=== PATIENT | male | born 1955 | race Caucasian/White ===

== ENCOUNTER 2017-06-10 17:14 | Inpatient (IN) | payer BC, MEDICARE ==
--- NOTE | 2017-06-10 17:43 | ED.PDOC ---
History of Present Illness - General Chief Complaint: Problem Stated Complaint: possible UTI Time Seen by Provider: 06/10/17 17:40 Source: patient, RN notes reviewed Exam Limitations: no limitations Additional Information: 61 YEAR OLD WHITE MALE HAD A PROSTATE BIOPSY BY DR ALLEN 2 DAYS AGO NOW HAS FEVER CHILLS DYSURIA WAS GIVEN PROPHYLACTIC ABX CIPRO AND ALSO RECD A ANTIBIOTIC SHOT - History of Present Illness Timing/Duration: changing over time Quality: moderate Onset Location: unknown Radiation: none Activites at Onset: none Prior abdominal problems: none Allergies/Adverse Reactions: Allergies NO KNOWN ALLERGY Allergy (Verified 06/10/17 17:20) Home Medications: Ambulatory Orders Ascorbic Acid [Vitamin C] 500 mg PO DAILY 06/10/17 Coenzyme Q10 (Ubidecarenone) [Co Q-10] 100 mg PO DAILY 06/10/17 Enalapril Maleate 10 mg PO DAILY 06/10/17 Esomeprazole Magnesium [Nexium] 40 mg PO DAILY 06/10/17 Review of Systems - Review of Systems Constitutional: States: chills, fever EENTM: States: no symptoms reported Respiratory: States: no symptoms reported Cardiology: States: no symptoms reported Gastrointestinal/Abdominal: States: no symptoms reported Genitourinary: States: see HPI Musculoskeletal: States: no symptoms reported Skin: States: no symptoms reported Endocrine: States: no symptoms reported Past Medical History (General) - Patient Medical History Hx Seizures: No Hx Stroke: No Hx Asthma: No Hx of COPD: No Hx Cardiac Disorders: No Hx Congestive Heart Failure: No Hx Hypertension: Yes Hx Thyroid Disease: No Hx Diabetes: No Hx Gastroesophageal Reflux: No Hx Renal Disease: No Hx MRSA: Yes - Arm 2007 MRSA Source:: Wound Family Medical History - Family History Mother Family History: Unknown Physical Exam - Physical Exam General Appearance: Comfortable Eyes, Ears, Nose, Throat Exam: PERRL/EOMI, normal ENT inspection, TMs normal Neck: non-tender, full range of motion, supple Cardiovascular/Respiratory: regular rate, rhythm, no M/R/G, normal peripheral pulses, no JVD, normal breath sounds Back Exam: normal inspection, no CVA tenderness, no vertebral tenderness Neurologic: bridal gown fitter II-XII nml as tested, alert, oriented x 3, abnormal cerebellar tests Departure - Departure Clinical Impression: Prostatitis Disposition: Admit Patient Condition: Fair Departure Forms: ED Discharge - Pt. Copy, Patient Portal Self Enrollment Referrals: BARBER LEY [Primary Care Provider] - 1-2 Weeks Home Medications: Ambulatory Orders Ascorbic Acid [Vitamin C] 500 mg PO DAILY 06/10/17 Coenzyme Q10 (Ubidecarenone) [Co Q-10] 100 mg PO DAILY 06/10/17 Enalapril Maleate 10 mg PO DAILY 06/10/17 Esomeprazole Magnesium [Nexium] 40 mg PO DAILY 06/10/17 Decision To Admit - Decistion To Admit Decision to Admit Reason: Medical Nature Decision to Admit Date: 06/10/17 Decision to Admit Time: 19:17
[2017-06-10] MEDS ORDERED: CEFEPIME 2 GM in SODIUM CHL 0.9% 50ML MIN-BAG+ 50 ML IVPB ONE (18:24)
[2017-06-10] MEDS ORDERED: SODIUM CHLORIDE 0.9% 1000ML 1,000 ML IVS ONE (18:26)
[2017-06-10] MEDS ORDERED: SODIUM CHL 0.9% 50ML MIN-BAG+ 50 ML IVPB ONE (18:37)
[2017-06-10] MEDS ORDERED: CEFEPIME 2 GM VIAL IVPB ONE (18:37)
--- NOTE | 2017-06-10 19:34 | HP ---
SUPERVISING PHYSICIAN: Dino Norris M.D. CHIEF COMPLAINT: Chills and fever. HISTORY OF PRESENT ILLNESS: This is a 61 year-old white male that has had fever and chills for 1-1/2 to 2 days. On 06/08/17, he had a prostate biopsy by Dr. Davalos and shortly after coming home on Tuesday he developed a fever and had chills with it as well as dysuria. He was initially given a prophylactic antibiotic of Cipro and received an antibiotic shot after his procedure. He called his doctor today and his urologist told him to come to the Emergency Room. In the Emergency Room his temperature was 99.5 with a heart rate of 97. His blood pressure was 112/76 with a respiratory rate of 20 and an O2 sat of 94%. Lab was completed and sodium was 137, potassium 3.7, chloride 107, carbon dioxide 19, BUN 20, creatinine 1.02, glucose 127 with lactic acid of 1.2. WBCs were 17,900, hemoglobin 15.7, hematocrit 46.4 with neutrophils of 84.5%. Urinalysis showed 100 urine protein, large amount of urine blood, positive urine nitrites, small amount of urine bilirubin, moderate leukocyte esterase. Urine RBCs were too numerous to count, urine WBCs were too numerous to count, urine bacteria was 3+. He was given fluids in the Emergency Room as well as started on Cefepime. Dr. Davalos's office was called. Dr. Gonzalez was the urologist natural resource economist and the E. R. doctor informed him of the patient's symptoms, and he agreed that he should be admitted to the hospital. PAST MEDICAL HISTORY: 1. Gastroesophageal reflux disease. 2. Hypertension. 3. Hyperlipidemia. PAST SURGICAL HISTORY: 1. Tonsillectomy as a child. 2. Prostate biopsy. OUTPATIENT MEDICATIONS: 1. Ascorbic acid. 2. Co-Enzyme Q10. 3. Nexium. 4. Enalapril. ALLERGIES: NO KNOWN DRUG ALLERGIES. FAMILY HISTORY: SOCIAL HISTORY: He lives in [place]. He is a patient of Dr. Carpio in [place]. He smokes approximately 1 pack of cigarettes daily and has since the age of 19. He denies any ETOH or illicit drug use. He lives in [place]. He is . He is retired. REVIEW OF SYSTEMS: GENERAL: Positive for fatigue, fever and chills. Negative for weight changes. HEENT: Negative for ear pain, vision changes, sinus symptoms or sore throat. RESPIRATORY: Positive for shortness of breath. Negative for wheezing or coughing. CARDIOVASCULAR: Negative for chest pain, palpitations or tachycardia. GASTROINTESTINAL: Negative for abdominal pain, nausea, vomiting, diarrhea or constipation. GENITOURINARY: As per History of Present Illness. EXTREMITIES: Negative for edema. SKIN: Negative for rashes or lesions. NEUROLOGIC: Negative for headaches, seizures or dizziness. PHYSICAL EXAMINATION: VITAL SIGNS: Temperature 98.3, pulse rate 68, blood pressure 114/73, respiratory rate 20, O2 sat 95% on room air. GENERAL: This is a 61 year-old male patient who is lying in his hospital bed. He is in mild distress as he has chills. HEENT: Normocephalic and atraumatic. Pupils are equal and reactive. Oropharynx is clear. Oral mucous membranes are slightly dry. NECK: Supple without mass. There is no discernible jugular venous distention. RESPIRATORY: Essentially clear to auscultation bilaterally. Slightly diminished at the bases. There is no wheezing or rhonchi. CARDIOVASCULAR: Regular rate and rhythm. GASTROINTESTINAL: Abdomen is soft, nondistended, non-tender. Bowel sounds are positive. EXTREMITIES: No cyanosis, clubbing or edema. NEUROLOGIC: He is awake, alert and oriented times three. LABORATORY: Labs and films are as per the History of Present Illness. ASSESSMENT: 1. Sepsis secondary to prostatitis with WBCs of 17,900 and heart rate of 97 [id number]. 2. Recent prostate biopsy due to enlarged prostate by Dr. Davalos, urologist on 06/08/17. 3. Hypertension. 4. Gastroesophageal reflux disease. 5. Hyperlipidemia. PLAN: We will admit the patient to the hospital. I will continue to give him fluids overnight. I have continued the Cefepime and will monitor cultures as they become available. I have also done a flu swab due to his elevated temperature and chills. I have ordered a PPI for ulcer prophylaxis. I will hold off on any anticoagulants for now due to his recent surgery and it may be beneficial to call Dr. Davalos in the morning to guide us on antibiotic therapy as well as beginning anticoagulation for DVT prophylaxis. I have also ordered pain medications as well as routine lab for in the morning. We will continue to monitor the patient closely and follow as needed. Dr. Norris is the collaborating physician available for consultation. [facility][id number] [facility]
[2017-06-10] MEDS ORDERED: SODIUM CHLORIDE 0.9% (FLUSH) 10 ML SYG IV PRN (20:37)
[2017-06-10] MEDS ORDERED: ALBUTEROL SULFATE 2.5 MG/3 ML VIAL NEB PRN (20:38)
[2017-06-10] MEDS ORDERED: HYDROcodone 5MG/APAP 325MG 1 EA TAB PO PRN (20:38)
[2017-06-10] MEDS ORDERED: ALPRAZolam 0.25 MG TAB PO ONE (20:41)
[2017-06-10] MEDS: PANTOPRAZOLE SODIUM IV 40 MG VIAL IV SCH (20:55)
[2017-06-10] MEDS: ACETAMINOPHEN 325 MG TAB PO PRN (20:58)
[2017-06-10] MEDS ORDERED: SODIUM CHLORIDE 0.9% (FLUSH) 10 ML SYG IV SCH (21:00)
[2017-06-10] MEDS ORDERED: IV SET AND CAP CHANGE INJ INJ SCH (21:00)
[2017-06-10] MEDS: SODIUM CHLORIDE 0.45% 1000ML 1,000 ML IVS PRN (21:03)
[2017-06-11] MEDS ORDERED: SODIUM CHL 0.9% 50ML MIN-BAG+ 50 ML IVPB ONE ×2 (05:13→17:11)
[2017-06-11] MEDS ORDERED: CEFEPIME 2 GM VIAL IVPB ONE ×2 (05:14→17:11)
[2017-06-11] MEDS: SODIUM CHLORIDE 0.45% 1000ML 1,000 ML IVS PRN (05:28)
[2017-06-11] MEDS: CEFEPIME 2 GM in SODIUM CHL 0.9% 50ML MIN-BAG+ 50 ML IVPB SCH ×2 (05:59→17:32)
[2017-06-11] MEDS ORDERED: ENALAPRIL MALEATE 5 MG TAB ONE (07:02)
[2017-06-11] MEDS ORDERED: ALBUTEROL SULFATE 2.5 MG/3 ML VIAL NEB SCH (08:00)
[2017-06-11] MEDS: ENALAPRIL MALEATE 5 MG TAB PO SCH (08:24)
[2017-06-11] MEDS ORDERED: SODIUM CHLORIDE 0.9% (FLUSH) 10 ML SYG IV ONE (09:29)
[2017-06-11] MEDS ORDERED: TOPIRAMATE 25 MG TAB ONE (13:06)
[2017-06-11] MEDS: TOPIRAMATE 25 MG TAB PO SCH ×2 (13:08→20:36)
--- NOTE | 2017-06-11 14:11 | PCM.CORE ---
Physician DVT/VTE - Nurse DVT Assessment & Total Each Risk Factor Represents 3 Points: Medical PT with Hx of AL, CHF, Severe infection/sepsis Each Risk Factor Represents 2 Points: Age 60-74 Each Risk Factor Represents 1 Point: Hx of smoking past year DVT Assessment Score: 6 - 5 or more Very High Risk Treatments: Early Ambulation *, Sequential Compression Device Pharmacological: Enoxaparin 40mg SQ Daily
[2017-06-11] MEDS: ACETAMINOPHEN 325 MG TAB PO PRN (14:15)
--- NOTE | 2017-06-11 14:38 | PN ---
DATE: 06/11/17 SUPERVISING PHYSICIAN: Dino Norris M.D. SUBJECTIVE: The patient said he feels a little bit better today. He says he has been able to urinate a little bit more without difficulty compared to prior to admission. He denies any abdominal pains, any nausea or vomiting or diarrhea. He did have some chills with mild tremors last night related to the underlying infection which had resolved with Benzodiazepines and further treatment. OBJECTIVE: VITAL SIGNS: He remains afebrile, temperature 98, max is 99.5, pulse 86, blood pressure 106/71, respirations 18, satting 94% on room air. I's and O' s show a positive balance of 2650 with 525 out, 2900 in. Weight is 71.7 kg. CHEST: Lungs are clear to auscultation. HEART: Regular rate and rhythm. ABDOMEN: Soft, non-tender. Positive bowel sounds. EXTREMITIES: No clubbing, cyanosis or edema. NEUROLOGIC: He is alert and oriented times three. LABORATORY: This morning, elevated white count at 20,200 with hemoglobin 14.3, hematocrit 43.1, platelet count shows a continued left shift with 2% bands. Chemistries show normal electrolytes, BUN is 23, creatinine 1.09, blood sugar 107. Liver functions are all within normal limits. MICROBIOLOGY: Blood cultures remain negative. Urine culture preliminary shows gram-negative rods. Influenza swab on admission showed negative for A and B. ASSESSMENT: 1. Sepsis without any evidence of bacteremia currently secondary to prostatitis with continued leukocytosis showing to be stable with initiation of treatment with Cefipime. 2. Recent prostate biopsy due to enlarged prostate performed by Dr. Davalos, urologist on 06/08/17. 3. Hypertension. 4. Gastroesophageal reflux disease. 5. Hyperlipidemia. PLAN: The patient will be saline locked today as he is taking adequate oral intake. He is urinating but not large amounts at any given time but he says it is getting a little bit easier. Will continue to monitor closely. He will remain on parenteral antibiotics to include Cefepime. Await final cultures that showed gram-negative rods. Will target antibiotic therapy according to those final results in the morning. He continues to be on DVT prophylaxis now with Lovenox coverage. Will anticipate another 24 to 48 hours possibly discharging on Tuesday after further evaluation of urine cultures and more aggressive treatment with IV antibiotics. I will touch base with Dr. Davalos in regards to treatment plan as well as outpatient discharge followup. Until then , continue to monitor and treat appropriately. #[id number] [facility]
[2017-06-11] MEDS: SODIUM CHLORIDE 0.9% (FLUSH) 10 ML SYG IV SCH (20:36)
[2017-06-11] MEDS: PANTOPRAZOLE SODIUM IV 40 MG VIAL IV SCH (20:36)
[2017-06-12] MEDS ORDERED: SODIUM CHL 0.9% 50ML MIN-BAG+ 50 ML IVPB ONE ×3 (04:06→20:28)
[2017-06-12] MEDS ORDERED: CEFEPIME 2 GM VIAL IVPB ONE ×3 (04:07→20:28)
[2017-06-12] MEDS: CEFEPIME 2 GM in SODIUM CHL 0.9% 50ML MIN-BAG+ 50 ML IVPB SCH ×2 (06:21→17:41)
[2017-06-12] MEDS: SODIUM CHLORIDE 0.9% (FLUSH) 10 ML SYG IV SCH ×2 (08:06→20:35)
[2017-06-12] MEDS: ENALAPRIL MALEATE 5 MG TAB PO SCH (08:06)
[2017-06-12] MEDS: ENOXAPARIN SODIUM 40 MG/0.4 ML SYG SUBCU SCH (08:09)
[2017-06-12] MEDS: TOPIRAMATE 25 MG TAB PO SCH ×2 (08:11→20:34)
[2017-06-12] MEDS: PANTOPRAZOLE SODIUM IV 40 MG VIAL IV SCH (20:34)
--- NOTE | 2017-06-12 20:55 | PN ---
DATE: 06/12/17 SUPERVISING PHYSICIAN: Elieser Shields M.D. SUBJECTIVE: The patient did run a fever yesterday around 2:00 with a T max of 101.0. She also had some dysuria and only had voided 250 cc in a 12 hour period , therefore a urinary catheter was required which did show a return of well over 750 cc of urine. He notes that he is feeling better than yesterday as well as feels relief after the Peraza catheter was placed which was able to be done so without any complications. He has had no nausea or vomiting or diarrhea. OBJECTIVE: VITAL SIGNS: T max 101.0, pulse 78, blood pressure 116/71, respirations 20, satting 95% on room air. I's and O's show a positive balance of 130 with 1770 in, 1640 out after Peraza catheter was placed. Initial Peraza catheter placement showed 750 cc with only 250 cc voided prior to catheterization. Weight 71.7 kg. CHEST: Lungs are clear to auscultation bilaterally. HEART: Regular rate and rhythm. ABDOMEN: Soft, non-tender. Positive bowel sounds. EXTREMITIES: No clubbing, cyanosis or edema. NEUROLOGIC : He is alert and oriented times three. LABORATORY: White count has gone down to 10,900, hemoglobin and hematocrit are stable at 14.2 and 42.6, platelet count 174,000. Differential continues to show a left shift that has improved. Chemistries show normal electrolytes with potassium 3.6, BUN 16, creatinine 0.91, calcium 8.7. Urinalysis on placement of Peraza showed moderate amount of blood with a trace leukocyte esterase, negative for nitrites. Microscopic revealed 10 to 20 RBCs with 5 to 10 WBCs, no epithelials and rare bacteria. MICROBIOLOGY: Final culture results of the urine showed a fairly resistant Escherichia coli that was resistant to fluoroquinolones, Bactrim, Ampicillin, but sensitive to Ceftriaxone, Cefepime and Meropenem as well as Macrobid. Please see that final result for full details. His blood cultures remain negative after 24 hours. RADIOLOGY: There are no additional radiographic studies. ASSESSMENT: 1. Sepsis without any evidence currently of bacteremia secondary to underlying prostatitis and urinary tract infection with leukocytosis showing improvement after initiation of parenteral antibiotics to include Cefipime. 2. Urinary retention secondary to underlying prostatitis requiring placement of Peraza catheter. 3. History of prostate biopsy due to elevated PSA levels with procedure being performed by Dr. Davalos, urologist, on 06/08/17. 4. Acute prostatitis urinary tract infection likely secondary to prostate biopsy with final culture results showing a fairly resistant Escherichia coli but sensitive to current parenteral antibiotic treatment with Cefepime. 5. Hypertension, stable. 6. Gastroesophageal reflux disease. 7. Hyperlipidemia. PLAN: The patient today will continue with Peraza catheter. Anticipate this will stay in after discharge as well given that he has a significant amount of urinary retention. A review of his final culture and sensitivity shows that it is Escherichia coli sensitive to Cefepime. Will continue with this and given that it is resistant to fluoroquinolones, will touch base with Dr. Davalos tomorrow to assist in further management of antibiotics at discharge in anticipation of possibly needing a shelter IV antibiotic therapy. The patient continues on DVT prophylaxis with Lovenox without any complications. Will continue to monitor blood cultures and treat fevers as needed with Tylenol. He will remain saline locked as he is taking adequate p.o. fluids. Will plan to repeat his laboratory studies in the morning and anticipate hopefully discharging tomorrow after further discussion of the patient's case with Dr. Davalos. Until then, will continue to monitor and treat appropriately. #[id number] [facility]
[2017-06-13] MEDS: CEFEPIME 2 GM in SODIUM CHL 0.9% 50ML MIN-BAG+ 50 ML IVPB SCH (05:34)
[2017-06-13] MEDS: ENOXAPARIN SODIUM 40 MG/0.4 ML SYG SUBCU SCH (08:10)
[2017-06-13] MEDS: SODIUM CHLORIDE 0.9% (FLUSH) 10 ML SYG IV SCH (08:10)
[2017-06-13] MEDS: TOPIRAMATE 25 MG TAB PO SCH (08:12)
[2017-06-13] MEDS: ENALAPRIL MALEATE 5 MG TAB PO SCH (08:12)
[2017-06-13] MEDS ORDERED: DOXYCYCLINE HYCLATE CAP 100 MG CAP PO SCH (09:00)
[2017-06-13] MEDS ORDERED: TAMSULOSIN 0.4 MG CAP PO SCH (09:00)
[2017-06-13 10:25] VITALS: BP 142/80; TEMP 97.6; O2SAT 97
--- NOTE | 2017-06-13 21:35 | DS ---
SUPERVISING PHYSICIAN: Elieser Shields M.D. DISCHARGE DIAGNOSIS: 1. Concerns for sepsis initially on admission with the patient showing a significant leukocytosis secondary to prostatitis with a highly resistant Escherichia coli without any evidence of bacteremia with the patient showing good response to treatment with parenteral antibiotics to include Cefipime and being transitioned to doxycycline. 2. Urinary retention secondary to underlying prostatitis requiring Peraza placement to be followed in the outpatient setting by Dr. Davalos. 3. History of previous prostate biopsy due to elevated PSA levels with procedure being performed by Dr. Davalos, urologist, on 06/08/17. 4. Acute prostatitis with urinary tract infection questionably secondary to prostate biopsy with final culture results again showing a fairly resistant Escherichia coli but sensitive to Cefipime and showing good response to treatment initially. 5. Hypertension, stable. 6. Gastroesophageal reflux disease. 7. Hyperlipidemia. REASON FOR HOSPITALIZATION: Alma Short is a 61 year-old male patient of Dr. Costa's and Dr. Davalos's. He had been having fever and chills for about a day and a half since the previous biopsy on 06/08/17, when he had a prostate biopsy by Dr. Davalos. He noted shortly after coming home he developed a fever and chills as well as some dysuria. He had been on antibiotics previously with Cipro. He called Dr. Davalos who informed him that he needed to go to the Emergency Room for further evaluation. In the Emergency Room, he was found to have a low-grade temperature of 99.5. White count was showing elevation at 17,900 and urinalysis showed a large amount of blood with positive urine nitrites, mild leukocyte esterase and too numerous to count WBCs with 3+ bacteria on microscopic exam. In the Emergency Room, he was given fluids and started on Cefipime. Dr. Davalos's office was informed of the findings and Dr. Gonzalez, who was conditioning yard supervisor for Urology at that time, requested the E. R. doctor admit the patient here at [facility] for ongoing treatment with antibiotics and to have close followup with Dr. Davalos. The patient was admitted in stable condition. LABORATORY STUDIES: CBC on admission showed a white count of 17,900. It did maximize out at 20,200 but prior to discharge and with treatment was down to 5, 700. Hemoglobin and history were stable, at discharge was 14.9 and 43.8, platelet count was at 204,000. Differential did show a left shift but had resolved prior to discharge. His chemistries on admission showed normal electrolytes initially with a low carbon dioxide of 19 but a normal anion gap. BUN was 20, creatinine 1.02. Lactic acid initially was 1.2. Liver functions all showed to be within normal limits. Prior to discharge his electrolytes continued to show a low carbon dioxide at 18 but normal anion gap at 11, BUN was down to 19, creatinine was at 0.76 and liver functions remained within normal limits. Urinalysis on admission prior to Peraza catheter placement showed a large amount of blood, 100 of protein with positive nitrites, small amount of bilirubin, leukocyte esterase with microscopic showing too numerous to count WBCs, RBCs and notable 3+ bacteria with moderate mucous. Second urinalysis after Peraza placement showed moderate amount of blood with trace leukocyte esterase. Microscopic revealed 10 to 20 RBCs, 5 to 10 WBCs, zero epithelials and rare bacteria. MICROBIOLOGY: Influenza swab by PCR was negative for both A and B. He had 2 sets of blood cultures that remained without any growth at 48 hours. His final urine culture showed Escherichia coli that was fairly resistant to antibiotics, but sensitive to Cefipime. It was also noted that it was resistant to Cipro and Levaquin. RADIOLOGY STUDIES: There were none completed on this admission. HOSPITAL COURSE: Mr. Barragan is a 61 year-old male patient who was admitted to the hospital through the E. R. at the request of Dr. Davalos and Dr. Gonzalez for concerns for a developing sepsis due to prostatitis. The patient was initiated on fluids and given antibiotics to include Cefipime. The patient showed good clinical response, however, on Tuesday prior to discharge the patient was having minimal output and having difficulty urinating, therefore a Peraza catheter was placed with a residual of 750. The patient continued to show good improvement with treatment. He normalized his white count and remained hemodynamically stable and was without a fever for over 24 hours prior to discharge. It was felt that the patient had clinically improved and after visiting with Dr. Davalos, he was in agreement that the patient could be discharged to continue with outpatient treatment plan. PLAN: Mr. Barragan was discharged on 06/13/17 with instructions to have followup with Dr. Davalos as instructed and scheduled as well as Dr. Costa, his primary care provider in at least 7 to 10 days, or sooner if needed. He is to see Dr. Costa on 06/24/17 at 10:00 AM in [place]. He is to continue with the Peraza catheter and was instructed on how to care for the Peraza catheter by nurses. He is to resume his home medications as instructed and start new medications as directed. He was encouraged to return to the hospital should he have any worsening of his symptoms, including increasing fever or pain or any notable change in his urine or difficulty with drainage of the urine bag. He is also scheduled to see Dr. Davalos on 06/20/17 at 2:00 PM in [place] and he is scheduled with Dr. Costa on 06/24/17 at 10:00. Diet at discharge was regular diet as tolerated. Activity is as tolerated. New medications at discharge included: 1. Doxycycline 100 mg twice daily for at least 30 days. 2. Flomax 0.4 mg for 30 days. All other medications prior to admission were continued as was prior to admission. Condition at discharge was stable and improved. #[id number] [facility]
== END 2017-06-13 10:39 | disposition home or self-care (01) | DRG 862 ==
LOC: ER 17:14 → OBSVTOIN 19:32 → MS 19:32
PROVIDERS: ADMIT Nurse Practitioner Acute Care; ATTEND Nurse Practitioner Family
DX: T81.4XXA Infection following a procedure, initial encounter (principal); A41.51 Sepsis due to Escherichia coli [E. coli]; N41.0 Acute prostatitis; Y83.8 Other surgical procedures as the cause of abnormal reaction of the patient, or of later complication, without mention of misadventure at the time of the procedure; I10 Essential (primary) hypertension; K21.9 Gastro-esophageal reflux disease without esophagitis; E78.5 Hyperlipidemia, unspecified; F17.210 Nicotine dependence, cigarettes, uncomplicated

== ENCOUNTER 2017-11-09 10:46 | Emergency (ER) | payer MEDICARE ==
[2017-11-09 11:00] VITALS: TEMP 97.9
[2017-11-09] MEDS ORDERED: KETOROLAC TROMETHAMINE INJ 30 MG/ML VIAL IM ONE (11:22)
[2017-11-09] MEDS ORDERED: GABAPENTIN 300 MG CAP PO ONE (11:22)
[2017-11-09] MEDS ORDERED: GABAPENTIN 100 MG CAP ONE (11:52)
[2017-11-09] MEDS ORDERED: GABAPENTIN 100 MG CAP PO ONE (11:55)
--- NOTE | 2017-11-09 12:22 | RAD ---
EXAM DESCRIPTION: Abdomen Series CLINICAL HISTORY: paraspinal pain adj T10-T12 COMPARISON: None. FINDINGS: AP supine and upright views of the abdomen show a nonspecific, nonobstructive bowel gas pattern with no evidence for free intraperitoneal air. Surgical clips from cholecystectomy are seen. No air-filled dilated loops of small bowel are seen. No significant air-fluid levels are identified. No obvious organomegaly is seen. No abnormal calcifications are seen in the expected location of the renal collecting systems. Single view of the chest shows cardiac silhouette and pulmonary vasculature to be within normal limits. Lungs are normally aerated and clear. Moderate tortuosity and calcifications of the thoracic aorta is seen. No obvious widening of the paraspinal line. Pelvis is incompletely visualized. IMPRESSION: Nonspecific abdominal series Electronically signed by: Dhaval Tatum MD 11/09/2017 12:21 PM CDT
--- NOTE | 2017-11-09 12:23 | RAD ---
EXAM DESCRIPTION: Thoracic Spine Lateral Only CLINICAL HISTORY: back pain COMPARISON: None. IMPRESSION: Single lateral view of the thoracic spine shows diffuse osteopenia the osseous structures. No obvious compression fracture deformity is seen. Mild disc space narrowing and anterior marginal endplate osteophytes in the lower thoracic spine suggest disc degenerative disease. Electronically signed by: Dhaval Tatum MD 11/09/2017 12:21 PM CDT
[2017-11-09] MEDS ORDERED: HYDROcodone 7.5MG/APAP 325MG 1 EA TAB PO ONE (12:49)
--- NOTE | 2017-11-09 12:53 | ED.PDOC ---
History of Present Illness - General Chief Complaint: Back Pain or Injury Stated Complaint: lumbar and flank pain Time Seen by Provider: 11/09/17 11:15 Source: patient Exam Limitations: no limitations - History of Present Illness Initial Comments: the patient is a 62-year-old male presenting to the emergency room secondary to a weeks worth of ongoing mid back pain. He has had no history of any trauma. He has had some mild chronic back pain in the past. He went to see his primary care doctor for 5 days ago and was placed on a muscle relaxer steroid and oral anti-inflammatory and Tylenol No. 3 that the pain has simply continued for an and he is having a little bit of sciatica down the left leg now. No weakness or sensory changes. Again no trauma. No falls. He is having difficulty with sleep due to the pain but also likely due to the steroid. On physical exam there is no visible deformity. No spinous process tenderness to palpation and no step-off. All pain is paraspinal and there is obvious palpable muscle spasm. He has muscle spasm extending adjacent to T10-T12 bilaterally. Timing/Duration: 1 week Severity: moderate Improving Factors: nothing Worsening Factors: movement Associated Symptoms: malaise Allergies/Adverse Reactions: Allergies NO KNOWN ALLERGY Allergy (Verified 06/10/17 17:20) Home Medications: Ambulatory Orders Ascorbic Acid [Vitamin C] 500 mg PO DAILY 06/10/17 Coenzyme Q10 (Ubidecarenone) [Co Q-10] 100 mg PO DAILY 06/10/17 Enalapril Maleate 10 mg PO DAILY 06/10/17 Esomeprazole Magnesium [Nexium] 40 mg PO DAILY 06/10/17 Topiramate 100 mg PO BID 06/11/17 Gabapentin 300 mg PO Q8HR PRN #20 cap 11/09/17 Review of Systems - Review of Systems Constitutional: States: no symptoms reported EENTM: States: no symptoms reported Respiratory: States: no symptoms reported Cardiology: States: no symptoms reported Gastrointestinal/Abdominal: States: no symptoms reported Genitourinary: States: no symptoms reported Musculoskeletal: States: see HPI Skin: States: no symptoms reported Neurological: States: see HPI Endocrine: States: no symptoms reported All other Systems: No Change from Baseline Past Medical History (General) - Patient Medical History Hx Seizures: No Hx Stroke: No Hx Asthma: No Hx of COPD: No Hx Cardiac Disorders: No Hx Congestive Heart Failure: No Hx Pacemaker: No Hx Hypertension: Yes Hx Thyroid Disease: No Hx Diabetes: No Hx Gastroesophageal Reflux: Yes Hx Renal Disease: No Hx MRSA: No MRSA Source:: Wound Surgical History: cholecystectomy, tonsillectomy - Social History Hx Alcohol Use: No Hx Substance Use: No Hx Physical Abuse: No Hx Emotional Abuse: No Family Medical History - Family History Mother Family History: Unknown Physical Exam - Physical Exam General Appearance: Alert, No apparent distress Eye Exam: bilateral normal Ears, Nose, Throat: hearing grossly normal, normal pharynx Neck: non-tender, full range of motion, supple Respiratory: lungs clear, normal breath sounds, no respiratory distress, no accessory muscle use Cardiovascular/Chest: normal peripheral pulses, no edema, other - regular rate Peripheral Pulses: radial,right: 2+, radial,left: 2+, dorsalis pedis,right: 2+, dorsalis pedis,left: 2+ Gastrointestinal/Abdominal: non tender, soft Rectal Exam: deferred Back Exam: no vertebral tenderness, CVA tenderness (R), CVA tenderness (L) Extremity: non-tender, normal inspection, no pedal edema, no calf tenderness, normal capillary refill 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 he does not have any tenderness to palpation or deformity over the spine itself. He does have paraspinal muscle spasms adjacent to T10 through T12 bilaterally. He is having a little bit of sciatica at this point after the pain is progressed over the last week. The patient is already taking a steroid, a muscle relaxer, and an anti-inflammatory , and a pain pill. I'm going to add some Neurontin on board primarily for the sciatica. I do think it would be beneficial for him to visit a chiropractor for a trial of treatment. If the patient is not improving over the next week then additional workup may be warranted. Urinalysis is clear. X-rays otherwise show no significant acute pathology. topical heat in the form of a heat pad or icy hot or Biofreeze may also prove beneficial. Stretching exercises may also help. 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 No evidence of any obstruction. No evidence of any obvious large kidney stones. No free air. No obvious abnormalities of the chest. Departure - Departure Clinical Impression: Mid-back pain, acute Sciatica Qualifiers: Laterality: left Qualified Code(s): M54.32 - Sciatica, left side Disposition: Discharge to Home or Self Care Condition: Fair Departure Forms: ED Discharge - Pt. Copy, Patient Portal Self Enrollment Instructions: DI for Back Strain or Sprain, DI for Back Pain With Sciatica Diet: regular diet Activity: increase activity as tolerated Referrals: BARBER LEY [Primary Care Provider] - 1-2 Weeks Prescriptions: Gabapentin 300 mg PO Q8HR PRN #20 cap PRN Reason: Pain -- Moderate Home Medications: Ambulatory Orders Ascorbic Acid [Vitamin C] 500 mg PO DAILY 06/10/17 Coenzyme Q10 (Ubidecarenone) [Co Q-10] 100 mg PO DAILY 06/10/17 Enalapril Maleate 10 mg PO DAILY 06/10/17 Esomeprazole Magnesium [Nexium] 40 mg PO DAILY 06/10/17 Topiramate 100 mg PO BID 06/11/17 Gabapentin 300 mg PO Q8HR PRN #20 cap 11/09/17 Additional Instructions: the patient is an 17-year-old male presenting secondary to an episode of heat exhaustion along with concurrent dehydration, gastritis giving nausea and vomiting and some hypokalemia. The patient is receiving a dose of oral potassium here. he is to have his potassium level rechecked in 2 weeks. He also received 2 L of IV fluids for the dehydration and for heat exhaustion. The patient will be placed on famotidine twice a day for the next 2 weeks as wellfor the gastritis. He'll also be written for some Zofran to take for as needed use to control any vomiting. He needs to avoid overheating particularly for the next 2 weeks, as he is more likely to complications from this if it recurs in that timeframe. ER warnings were given for any worsening. no significant evidence of any kidney or liver dysfunction or significant rhabdomyolysis. follow-up with primary care doctor early next week for clearance to resume full outdoor activity.
[2017-11-09 13:25] VITALS: BP 180/90; O2SAT 99
== END 2017-11-09 13:22 | disposition home or self-care (01) ==
LOC: ER 10:46
DX: M54.6 Pain in thoracic spine (principal); M54.32 Sciatica, left side; I10 Essential (primary) hypertension; K21.9 Gastro-esophageal reflux disease without esophagitis
CPT/HCPCS: 72020; 74019; 81001; J1885

== ENCOUNTER 2018-07-31 10:24 | Emergency (ER) | payer MEDICARE ==
[2018-07-31 10:38] VITALS: TEMP 97.3
--- NOTE | 2018-07-31 10:51 | ED.PDOC ---
History of Present Illness - General Chief Complaint: GI Problem Stated Complaint: HEMORROIDS/BLEEDING Time Seen by Provider: 07/31/18 10:36 Source: patient Exam Limitations: no limitations - History of Present Illness Initial Comments: Reg Barragan63 y/o male came to ER with dull pain perineal area for the last one week not any better even after using rectal suppositories as prescribed by Md.Denies fever ,chills or rectal bleeding. Timing/Duration: other - one week Severity: moderate Improving Factors: nothing Worsening Factors: other - sitting Associated Symptoms: denies symptoms Allergies/Adverse Reactions: Allergies NO KNOWN ALLERGY Allergy (Verified 07/31/18 10:38) Home Medications: Ambulatory Orders Ascorbic Acid [Vitamin C] 500 mg PO DAILY 06/10/17 Coenzyme Q10 (Ubidecarenone) [Co Q-10] 100 mg PO DAILY 06/10/17 Enalapril Maleate 10 mg PO DAILY 06/10/17 Esomeprazole Magnesium [Nexium] 40 mg PO DAILY 06/10/17 Topiramate 100 mg PO BID 06/11/17 Acetaminophen W/ Codeine [Tylenol W/ CODEINE #3] 1 ea PO Q4HR PRN #20 07/31/18 Atenolol [Tenormin] 25 mg PO BEDTIME 07/31/18 Ciprofloxacin [Cipro] 500 mg PO BID 10 Days #20 tab 07/31/18 Rosuvastatin Calcium [Crestor] 20 mg PO BEDTIME 07/31/18 Review of Systems - Review of Systems Constitutional: States: no symptoms reported EENTM: States: no symptoms reported Respiratory: States: no symptoms reported Skin: States: see HPI All other Systems: Reviewed and Negative Past Medical History (General) - Patient Medical History Hx Seizures: No Hx Stroke: No Hx Asthma: No Hx of COPD: No Hx Cardiac Disorders: No Hx Congestive Heart Failure: No Hx Pacemaker: No Hx Hypertension: Yes Hx Thyroid Disease: No Hx Diabetes: No Hx Gastroesophageal Reflux: Yes Hx Renal Disease: No Hx Cancer: No Hx Hepatitis C: No Hx MRSA: No MRSA Source:: Wound Surgical History: cholecystectomy, tonsillectomy, other - prostate biopsy,colonoscopy,vasectomy - Vaccination History Hx Tetanus, Diphtheria Vaccination: No Hx Influenza Vaccination: No Hx Pneumococcal Vaccination: No Immunizations Up to Date: No - Social History Hx Tobacco Use: Yes Hx Alcohol Use: No Hx Substance Use: No Hx Substance Use Treatment: No Hx Depression: No Hx Physical Abuse: No Hx Emotional Abuse: No Family Medical History - Family History Mother Family History: Unknown Hx Family Hypertension: Yes - mom Hx Family Cancer: Yes - brain-sisters Hx Family;Other: DAD-dyslipedemia Physical Exam - Physical Exam General Appearance: Alert, Comfortable, No apparent distress Eye Exam: bilateral normal Ears, Nose, Throat: hearing grossly normal, normal ENT inspection Neck: full range of motion, supple, normal inspection Respiratory: lungs clear, normal breath sounds, no respiratory distress Cardiovascular/Chest: normal peripheral pulses, regular rate, rhythm, no murmur Peripheral Pulses: radial,right: 2+, radial,left: 2+ Gastrointestinal/Abdominal: non tender, soft, no organomegaly, other - Genitali- normal male ,single testes Rectal Exam: tenderness - perineum, other - erythematous fluctuant area perineum;no induration noted rectal exam Back Exam: no CVA tenderness, no vertebral tenderness Extremity: no pedal edema, no calf tenderness Neurologic: alert, oriented x 3 Skin Exam: normal color, warm/dry Lymphatic: no adenopathy Progress - Progress Progress: 07/31/18 11:10 Vital Signs - 8 hr 07/31/18 10:33 Temperature 97.3 F L Pulse Rate [ 109 H MONITOR] Respiratory 18 Rate Blood Pressure 141/90 [LA] O2 Sat by Pulse 98 Oximetry Procedures - Incision and Drainage #1 Site: perineum Procedure and Prep: sterile drapes applied, sterile dressings applied, gauze wick placed, irrigated, wound culture collected, other - hibiclens Blade Size: 11 Procedure Comments: tolerated well;given Morphine sulfate 5 mg IV and. Compazine 5 mg IV prior to procedure Departure - Departure Clinical Impression: Perineal abscess Time of Disposition: 11:56 Disposition: Discharge to Home or Self Care Condition: Good Departure Forms: ED Discharge - Pt. Copy, Patient Portal Self Enrollment Instructions: Abscess Incision and Drainage (DC), Abscess Incision and Drainage Referrals: BARBER LEY [Primary Care Provider] - 1-2 Weeks Prescriptions: Acetaminophen W/ Codeine [Tylenol W/ CODEINE #3] 1 ea PO Q4HR PRN #20 PRN Reason: Pain Ciprofloxacin [Cipro] 500 mg PO BID 10 Days #20 tab Home Medications: Ambulatory Orders Ascorbic Acid [Vitamin C] 500 mg PO DAILY 06/10/17 Coenzyme Q10 (Ubidecarenone) [Co Q-10] 100 mg PO DAILY 06/10/17 Enalapril Maleate 10 mg PO DAILY 06/10/17 Esomeprazole Magnesium [Nexium] 40 mg PO DAILY 06/10/17 Topiramate 100 mg PO BID 06/11/17 Acetaminophen W/ Codeine [Tylenol W/ CODEINE #3] 1 ea PO Q4HR PRN #20 07/31/18 Atenolol [Tenormin] 25 mg PO BEDTIME 07/31/18 Ciprofloxacin [Cipro] 500 mg PO BID 10 Days #20 tab 07/31/18 Rosuvastatin Calcium [Crestor] 20 mg PO BEDTIME 07/31/18 Additional Instructions: Continue with all home medications p;Pull out packing 02 August 2018 AM;Clean area with hibiclens as provided once daily at bedtime after pulling out packing for 5 days;Return to ER as needed ;follow up with primary MD 07 August 2018 for recheck
[2018-07-31] MEDS ORDERED: CLINDAMYCIN IV 600MG 600 MG in PREMIX BAG 1 BAG IVPB ONE (10:52)
[2018-07-31] MEDS ORDERED: levoFLOXacin 500 MG TAB PO ONE (10:52)
[2018-07-31] MEDS ORDERED: CLINDAMYCIN IV 600MG 50 ML IVPB ONE (10:54)
[2018-07-31] MEDS ORDERED: CHLORHEXIDINE GLUCONATE 4 % 15 ML UD TOP ONE (11:15)
[2018-07-31] MEDS ORDERED: IODOFORM PACKING 1/2 INCH 1 EA BTTL TOP ONE (11:19)
[2018-07-31] MEDS ORDERED: PROCHLORPERAZINE INJ 10 MG/2 ML VIAL ONE (11:25)
[2018-07-31] MEDS ORDERED: MORPHINE SULFATE INJ 10 MG/ML VIAL ONE (11:26)
[2018-07-31] MEDS ORDERED: MORPHINE SULFATE INJ 10 MG/ML VIAL IV ONE (11:47)
[2018-07-31] MEDS ORDERED: PROCHLORPERAZINE INJ 10 MG/2 ML VIAL IV ONE (11:47)
[2018-07-31 12:19] VITALS: BP 104/65; O2SAT 98
== END 2018-07-31 12:20 | disposition home or self-care (01) ==
LOC: ER 10:24
DX: L02.215 Cutaneous abscess of perineum (principal); I10 Essential (primary) hypertension; K21.9 Gastro-esophageal reflux disease without esophagitis; Z79.899 Other long term (current) drug therapy
CPT/HCPCS: 87070; 87075; 87077; 87186; 87205; J0780; J2270; J3490

== ENCOUNTER → 2018-09-06 | Outpatient (CLI) | payer MEDICARE ==
--- NOTE | 2018-09-07 09:15 | MRI ---
EXAM DESCRIPTION: MRI pelvis without and with contrast CLINICAL HISTORY: Cutaneous abscess of the perineum. Abscess drained one month ago COMPARISON: None. TECHNIQUE: Multiplanar, multisequence MR images of the pelvis, pre and post intravenous gadolinium FINDINGS: Cutaneous and subcutaneous defect of the left perineum/lower intergluteal crease. Inflammatory process involving an area roughly 2.5 cm in size. Small volume of nonenhancing fluid over about 1 cm postcontrast axial T1 series 801 image 4. Surrounding edema and contrast enhancement/inflammation. This is within the subcutaneous soft tissues without fistula to the anus. No pelvic soft tissue mass lesion, adenopathy or free fluid. Central prostate hypertrophy indenting the base of the urinary bladder. Sigmoid diverticulosis without diverticulitis IMPRESSION: Cutaneous/subcutaneous 1 cm nonenhancing fluid/abscess with surrounding inflammatory soft tissue edema and enhancement. Located in the left perineum/intergluteal crease Electronically signed by: Dino Lassiter MD 09/07/2018 9:13 AM CDT
== END ==
LOC: LAB.O 10:09
PROVIDERS: ATTEND Internal Medicine Gastroenterology
DX: L02.215 Cutaneous abscess of perineum (principal)

== ENCOUNTER 2019-01-17 20:44 | Emergency (ER) | payer MEDICARE ==
--- NOTE | 2019-01-17 21:18 | ED.PDOC ---
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 Pt lifted some dogs yesterday and is unsure if he hurt his back. Pt has been sob since the surgery.l Pt denies cp/n/v/diaphoresis/dizziness or excessive fatigue. No cough. Timing/Duration: 1-3 hours Severity: mild Activities at Onset: none Possible Cause: unknown cause Improving Factors: nothing Worsening Factors: movement Associated Symptoms: pain - right mid back pain Respiratory Risk Factors: no cause identified Allergies/Adverse Reactions: Allergies NO KNOWN ALLERGY Allergy (Verified 01/17/19 20:57) Home Medications: Ambulatory Orders Coenzyme Q10 (Ubidecarenone) [Co Q-10] 100 mg PO DAILY 06/10/17 Esomeprazole Magnesium [Nexium] 40 mg PO AC 06/10/17 Topiramate 100 mg PO BID 06/11/17 Rosuvastatin Calcium [Crestor] 20 mg PO BEDTIME 07/31/18 Aspirin [Aspirin Childrens] 81 mg PO DAILY 01/17/19 Calcium W/ Vitamins D & K [Viactiv 500-500-40 mg-Unt-Mcg] 1 chw PO DAILY 01/17/19 Fiber [Fiber Diet] 1 tab PO AC 01/17/19 Metoprolol Tartrate 25 mg PO BID 01/17/19 Review of Systems - Review of Systems Constitutional: States: no symptoms reported EENTM: States: no symptoms reported Respiratory: States: see HPI, short of breath Cardiology: States: no symptoms reported, see HPI Gastrointestinal/Abdominal: States: no symptoms reported, see HPI Genitourinary: States: no symptoms reported Musculoskeletal: States: see HPI, back pain Skin: States: no symptoms reported Neurological: States: no symptoms reported All other Systems: Reviewed and Negative Past Medical History (General) - Patient Medical History Hx Seizures: No Hx Stroke: No Hx Dementia: No Hx Asthma: No Hx of COPD: Yes Hx Cardiac Disorders: Yes - Hx quad. bypass Hx Congestive Heart Failure: No Hx Pacemaker: No Hx Hypertension: Yes Hx Thyroid Disease: No Hx Diabetes: No Hx Gastroesophageal Reflux: Yes Hx Renal Disease: No Hx Cancer: No Hx of HIV: No Hx Hepatitis C: No Hx MRSA: No MRSA Source:: Wound Surgical History: cholecystectomy, tonsillectomy, other - Vaccination History Hx Tetanus, Diphtheria Vaccination: Yes Hx Influenza Vaccination: No Hx Pneumococcal Vaccination: No - Social History Hx Tobacco Use: Yes - Quit in September Hx Alcohol Use: No Hx Substance Use: No Hx Substance Use Treatment: No Hx Depression: No Hx Physical Abuse: No Hx Emotional Abuse: No Family Medical History - Family History Mother Family History: Unknown Hx Family Hypertension: Yes - mom Hx Family Cancer: Yes - brain-sisters Hx Family;Other: DAD-dyslipedemia Physical Exam - Physical Exam General Appearance: Alert, Comfortable, Well Developed, Well Groomed, Well Hydrated, Well Nourished Eyes, Ears, Nose, Throat Exam: PERRL/EOMI, normal ENT inspection, pharynx normal Neck: non-tender, full range of motion, supple, normal inspection Respiratory: chest non-tender, lungs clear, normal breath sounds, no respiratory distress, no accessory muscle use, wheezing - intermittent end expiratory. Pt with hx of cardiac dysrhythmia with albuterol, expiration - end expiratory wheezing Cardiovascular/Chest: normal peripheral pulses, regular rate, rhythm, no edema, no JVD, no murmur, other - well healed midline sternotomy scar, fresh. Gastrointestinal/Abdominal: normal bowel sounds, non tender Extremity: normal range of motion, non-tender Neurologic: veneer marker II-XII nml as tested, no motor/sensory deficits, alert, normal mood/affect, oriented x 3 Skin Exam: normal color, warm/dry Progress - Progress Progress: 01/17/19 23:14 d/w pt's CVTS surgeon, Dr. Tyler. Pt to f/u in his office tomorrow. Plan d/c home at this time. Juan Luis Talley M.D. #[id number] - Results/Orders Results/Orders: 01/17/19 20:58 Telemetry .ONCE Laboratory Results - last 24 hr 01/17/19 01/17/19 21:00 21:00 WBC 9.9 RBC 5.19 Hgb 15.2 Hct 46.2 MCV 88.9 MCH 29.3 MCHC 33.0 RDW 14.6 H Plt Count 228 MPV 9.0 Absolute Neuts (auto) 6.70 Absolute Lymphs (auto) 2.10 Absolute Monos (auto) 0.80 Absolute Eos (auto) 0.20 Absolute Basos (auto) 0.10 Neutrophils % 67.9 Lymphocytes % 21.4 Monocytes % 7.8 Eosinophils % 2.2 Basophils % 0.7 PT 10.1 INR 1.01 PTT (SP) 26.0 D-Dimer, Quantitative 1.06 H* Sodium 139 Potassium 3.6 Chloride 109 Carbon Dioxide 19 L Anion Gap 14.6 BUN 16 Creatinine 1.31 H BUN/Creatinine Ratio 12.2 Random Glucose 116 H Serum Osmolality 279.7 Calcium 9.2 Magnesium 1.8 Total Bilirubin 0.2 Direct Bilirubin < 0.1 Indirect Bilirubin 0.1 L AST 24 ALT 22 Alkaline Phosphatase 96 Creatine Kinase 162 CK-MB (CK-2) 2.0 CK-MB (CK-2) % Not Reportable Troponin I < 0.02 B-Natriuretic Peptide 34.4 Serum Total Protein 7.5 Albumin 4.1 CXR shows a new loculated effucsion on the right. - EKG/XRAY/CT Comments: NSR@81 bpm, NAD, prolonged QT, ant infarct age indeteriminate, abnl ekg. Departure - Departure Clinical Impression: Pleural effusion Dyspnea Qualifiers: Dyspnea type: shortness of breath Qualified Code(s): R06.02 - Shortness of breath; R06.00 - Dyspnea, unspecified; R06.01 - Orthopnea Time of Disposition: 23:18 Disposition: Discharge to Home or Self Care Departure Forms: ED Discharge - Pt. Copy, Patient Portal Self Enrollment Instructions: Pleural Effusion (DC), Shortness of Breath (Dyspnea) (DC) Referrals: BARBER LEY [Primary Care Provider] - 1-2 Weeks Home Medications: Ambulatory Orders Coenzyme Q10 (Ubidecarenone) [Co Q-10] 100 mg PO DAILY 06/10/17 Esomeprazole Magnesium [Nexium] 40 mg PO AC 06/10/17 Topiramate 100 mg PO BID 06/11/17 Rosuvastatin Calcium [Crestor] 20 mg PO BEDTIME 07/31/18 Aspirin [Aspirin Childrens] 81 mg PO DAILY 01/17/19 Calcium W/ Vitamins D & K [Viactiv 500-500-40 mg-Unt-Mcg] 1 chw PO DAILY 01/17/19 Fiber [Fiber Diet] 1 tab PO AC 01/17/19 Metoprolol Tartrate 25 mg PO BID 01/17/19 Additional Instructions: Follow up with your cardiothoracic surgeon in the morning.
--- NOTE | 2019-01-17 21:36 | RAD ---
EXAM: XR Chest, 2 Views CLINICAL HISTORY: SOB, right mid-back pain TECHNIQUE: Frontal and lateral views of the chest. COMPARISON: 11/09/2017. FINDINGS: Limitations: None. Lungs: Unremarkable. No consolidation. Pleural space: There is new right basilar pleural thickening. No pneumothorax. Heart: Unremarkable. No cardiomegaly. Mediastinum: Unremarkable. Bones/joints: Interval sternotomy and atrial appendage closure. IMPRESSION: Chronic changes as above. No acute disease. Electronically signed by: Milli Senior MD 01/17/2019 9:34 PM CDT
[2019-01-17 23:39] VITALS: BP 154/119; TEMP 98.5; O2SAT 97
[2019-01-17] MEDS ORDERED: HYDROcodone 7.5MG/APAP 325MG 1 EA TAB PO ONE (23:39)
== END 2019-01-17 23:53 | disposition home or self-care (01) ==
LOC: ER 20:44
DX: R06.02 Shortness of breath (principal); J90 Pleural effusion, not elsewhere classified; I45.81 Long QT syndrome; M54.6 Pain in thoracic spine; J44.9 Chronic obstructive pulmonary disease, unspecified; I10 Essential (primary) hypertension; K21.9 Gastro-esophageal reflux disease without esophagitis; Z87.891 Personal history of nicotine dependence; Z95.1 Presence of aortocoronary bypass graft; Z79.82 Long term (current) use of aspirin; Z79.899 Other long term (current) drug therapy

== ENCOUNTER → 2019-01-19 | Outpatient (CLI) | payer MEDICARE ==
--- NOTE | 2019-01-19 12:20 | CT ---
EXAM DESCRIPTION: Chest w/Contrast CLINICAL HISTORY: PLEURAL EFFUSION ABNORMAL FINDINGS ON BLOOD CHEMISTRY COMPARISON: Chest x-ray January 17, 2019 TECHNIQUE: Postcontrast CT images of the chest are obtained using standard imaging protocol. This exam was performed according to our departmental dose-optimization program, which includes automated exposure control, adjustment of the mA and/or kV according to patient size and/or use of iterative reconstruction technique . FINDINGS: Heart is mildly enlarged. Postsurgical changes from CABG are seen. Left atrial clip. Lack of osseous union of the sternotomy at this time is seen. No pathologically enlarged mediastinal, hilar, or axillary lymphadenopathy seen. No pleural or pericardial effusion. Visualized portion of the upper abdomen shows no acute findings. Cholecystectomy changes are seen. Lungs are normally aerated. Moderate centrilobular emphysematous changes are seen. Pleural-based soft tissue attenuation mass in the right lung base measures 1.9 x 1.0 cm with mild surrounding interstitial thickening. Mild interstitial thickening in the bilateral lower lobes, inferior right middle lobe, and lingula of the left upper lobe. No other pulmonary nodules. Osseous structures show no aggressive bony lesions. Mild to moderate disc degenerative changes of the thoracic spine. IMPRESSION: Increased interstitial markings in the lung bases likely represents atelectasis or scarring. Moderate emphysematous changes to the chest. 14.5 mm solid pulmonary nodule right lower lobe. Consider a non-contrast Chest CT at 3 months, a PET/CT, or tissue sampling. These guidelines do not apply to immunocompromised patients and patients with cancer. Follow up in patients with significant comorbidities as clinically warranted. For lung cancer screening, adhere to Lung-RADS guidelines. Reference: Radiology. 2017; 284(1):228-43. Postsurgical changes from cardiac surgery and CABG with incomplete union of the sternotomy may be secondary to recent surgery. Correlate with patient history. Electronically signed by: Dhaval Tatum MD 01/19/2019 12:19 PM CDT
== END ==
LOC: LAB.O 10:33
PROVIDERS: ATTEND Surgery
DX: J40 Bronchitis, not specified as acute or chronic (principal); R91.1 Solitary pulmonary nodule; R79.89 Other specified abnormal findings of blood chemistry